=== PATIENT | female | born 1985 | race American Indian/Alaskan Native ===

== ENCOUNTER 2016-11-09 03:42 | Inpatient (IN) | payer BC, MEDICAID ==
[2016-11-09] MEDS ORDERED: STADOL IV PRN (04:41)
[2016-11-09] MEDS ORDERED: ePHEDrine SULFATE IV PRN ×2 (04:41→08:00)
[2016-11-09] MEDS ORDERED: MINERAL OIL PO PRN (04:41)
[2016-11-09] MEDS ORDERED: SUBLIMAZE IV PRN (04:41)
[2016-11-09] MEDS ORDERED: XYLOCAINE 2% INFILTRATI ONE (04:41)
[2016-11-09] MEDS ORDERED: BRETHINE IVP PRN (04:41)
[2016-11-09] MEDS ORDERED: BRETHINE SUB-Q PRN (04:41)
[2016-11-09] MEDS ORDERED: PITOCin/NS 20 UNIT/1000ML DRIP 20 UNITS/1,000 ML BAG IV SCH ×2 (05:00→17:00)
[2016-11-09] MEDS ORDERED: LACTATED RINGERS 1,000 ML IV SCH (05:00)
[2016-11-09 05:23] LABS: Hematocrit 35.3 % (30.3-42.9); Hemoglobin 11.5 gm/dl (10.1-14.3); Mean Corpuscular HGB Conc 33 % (30-34); Mean Corpuscular Hemoglobin 28 pg (28-32); Mean Corpuscular Volume 87 fl (79-97); Platelet Count 160 K/mm3 (140-440); Red Blood Count 4.08 M/mm3 (3.65-5.03); Red Cell Distribution Width 14.8 % (13.2-15.2); White Blood Count 8.9 K/mm3 (4.5-11.0)
[2016-11-09] MEDS ORDERED: ePHEDrine SULFATE ONE ×2 (06:17→15:48)
--- NOTE | 2016-11-09 07:15 | Anesthesia Consultation ---
Anesthesia Consult and Med Hx Date of service: 11/09/16 - Airway Anesthetic Teeth Evaluation: Good ROM Head & Neck: Adequate Mental/Hyoid Distance: Adequate Intubation Access Assessment: Probably Good - Pre-Operative Health Status ASA Pre-Surgery Classification: ASA2, Emergency Proposed Anesthetic Plan: Epidural, Spinal - Pulmonary Hx Asthma: No COPD: No Hx Pneumonia: No - Cardiovascular System Hx Hypertension: No - Central Nervous System Hx Seizures: No Hx Psychiatric Problems: No - Endocrine Hx Renal Disease: No Hx End Stage Renal Disease: No Hx Hypothyroidism: No Hx Hyperthyroidism: No - Hematic Hx Anemia: No Hx Sickle Cell Disease: No - Other Systems Hx Alcohol Use: No
[2016-11-09] MEDS ORDERED: fentaNYL-BUPIV 2 MCG/ML-0.125% 200 MCG/100 ML BAG EPIDURAL SCH (08:00)
[2016-11-09] MEDS ORDERED: NARCAN 2 MG/2 ML IV PRN (08:00)
[2016-11-09] MEDS ORDERED: BICITRA ONE (14:19)
[2016-11-09] MEDS ORDERED: REGLAN ONE (14:19)
[2016-11-09] MEDS ORDERED: PEPCID IV ONE (14:19)
--- NOTE | 2016-11-09 14:27 | History and Physical Report ---
History of Present Illness Date of examination: 11/09/16 Date of admission: 11/09/16 04:45 Chief complaint: contractions History of present illness: This is a 31 yo at 39+ weeks came in last night for contractions regularly. She changed her cervix and was admitted to labor and delivery for active labor. She is a patient of [facility] and was seen since 13 weeks. During her OB problems 1. Hx of b/l club feet APA neg for cclub feet 2. 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 denies: smoking, alcohol abuse - Obstetrical History Expected Date of Delivery: 11/08/16 Actual Gestation: 40 Week(s) 1 Day(s) : 6 Hx # Term Pregnancies: 4 Number of Pregnancies: 0 Spontaneous Abortions: 0 Induced : 1 Number of Living Children: 4 Medications and Allergies Allergies Allergy/AdvReac Type Severity Reaction Status Date / Time No Known Allergies Allergy Unverified 11/09/16 03:55 Home Medications Medication Instructions Recorded Confirmed Last Taken Type No Known Home Medications [No 11/09/16 11/09/16 Unknown History Reported Home Medications] Active Meds: Active Medications Butorphanol Tartrate (Stadol) 2 mg IV Q2H PRN PRN Reason: Pain , Severe (7-10) Ephedrine Sulfate (Ephedrine Sulfate) 10 mg IV Q2M PRN PRN Reason: Hypotension Stop: 11/10/16 07:59 Fentanyl (Sublimaze) 100 mcg IV Q2H PRN PRN Reason: Labor Pain Last Admin: 11/09/16 05:43 Dose: 100 mcg Lactated Ringer's (Lactated Ringers) 1,000 mls @ 125 mls/hr IV DIRECT YUNIER Last Admin: 11/09/16 05:32 Dose: 999 mls/hr Oxytocin/Sodium Chloride (Pitocin/Ns 20 Unit/1000ml Drip) 20 units in 1,000 mls @ 125 mls/hr IV DIRECT YUNIER Fentanyl/Bupivacaine/Sodium Chlor (Fentanyl-Bupiv 2 Mcg/Ml-0.125%) 200 mcg in 100 mls @ 12 mls/hr EPIDURAL TITR YUNIER PRN Reason: Protocol Last Admin: 11/09/16 07:48 Dose: 12 mls/hr Mineral Oil (Mineral Oil) 30 ml PO QHS PRN PRN Reason: Constipation Naloxone HCl (Narcan 2 Mg/2 Ml) 0.2 mg IV Q5M PRN PRN Reason: Respiratory sedation Stop: 11/10/16 07:59 Review of Systems All systems: negative Genitourinary: contractions - Vital Signs Vital signs: Vital Signs Temp Resp 98.5 F 18 11/09/16 04:03 11/09/16 04:03 Temp Pulse Resp BP Pulse Ox 98.7 F 107 H 18 122/68 100 11/09/16 05:27 11/09/16 14:17 11/09/16 05:43 11/09/16 14:00 11/09/16 14:17 - Physical Exam Breasts: Positive: normal Cardiovascular: Regular rate, Normal S1, Normal S2 Lungs: Positive: Clear to auscultation, Normal air movement Abdomen: Positive: normal appearance, soft, normal bowel sounds. Negative: distention, tenderness Genitourinary (Female): Positive: normal external genitalia, normal perenium Vulva: both: normal Uterus: Positive: normal size, normal contour Anus/Rectum: Positive: normal perianal skin Extremities: Positive: normal Deep Tendon Reflex Grade: Normal +2 - Obstetrical FHR: category 2 Uterine Contraction Monitor Mode: External Cervical Dilatation: 7 Uterine Contraction Pattern: Regular Uterine Tone Measurement Phase: Contraction Uterine Contraction Intensity: Moderate Results Result Diagrams: 11/09/16 05:03 All other labs normal. Assessment and Plan A/P IUP 40 weeks admit to labor and delivery GBS neg expect vaginal delivery
--- NOTE | 2016-11-09 14:33 | Event Note ---
Date: 11/09/16 Patient was checked this am and noted to be 6 cm. She was admitted overnight and given epidural. I checked patient and placed IUPC and FSE and intitated pitocin. Patient rechecked several hours later and no change in cervix. SVE /-2 Cat 2 strip with variable decles noted. Discussed with family and mom discussed failure to progress and we have after discussing r/b/a of the procedure will proceed with primary c/Em questions answered consents signed
[2016-11-09] MEDS ORDERED: XYLOCAINE MPF 2% ONE (14:50)
[2016-11-09] MEDS ORDERED: WATER FOR IRRIG STERILE IR ONE (15:08)
[2016-11-09] MEDS ORDERED: NACL 0.9% IR ONE (15:08)
[2016-11-09] MEDS ORDERED: MORPHINE ONE ×2 (15:35)
[2016-11-09] MEDS ORDERED: WATER FOR INJ (PF) 10 ML ONE (15:38)
[2016-11-09] MEDS ORDERED: NEO SYNEPHRINE/NS Syringe(OR USE) IV ONE (16:00)
--- NOTE | 2016-11-09 16:12 | Anesthesia Consultation ---
Anesthesia Consult and Med Hx Date of service: 11/09/16 - Airway Anesthetic Teeth Evaluation: Good ROM Head & Neck: Adequate Mental/Hyoid Distance: Adequate Mallampati Class: Class II Intubation Access Assessment: Probably Good - Pulmonary Exam CTA: Yes - Cardiac Exam Cardiac Exam: RRR - Pre-Operative Health Status ASA Pre-Surgery Classification: ASA2 Proposed Anesthetic Plan: Epidural, Spinal - Pulmonary Hx Asthma: No COPD: No Hx Pneumonia: No - Cardiovascular System Hx Hypertension: No - Central Nervous System Hx Seizures: No Hx Psychiatric Problems: No - Endocrine Hx Renal Disease: No Hx End Stage Renal Disease: No Hx Hypothyroidism: No Hx Hyperthyroidism: No - Hematic Hx Anemia: No Hx Sickle Cell Disease: No - Other Systems Hx Alcohol Use: No Hx Obesity: Yes - Additional Comments Anesthesia Medical History Comments: +IUP
[2016-11-09 16:20] LABS: Hematocrit 30.2 % (30.3-42.9); Hemoglobin 9.9 gm/dl (10.1-14.3); Mean Corpuscular HGB Conc 33 % (30-34); Mean Corpuscular Hemoglobin 29 pg (28-32); Mean Corpuscular Volume 87 fl (79-97); Platelet Count 152 K/mm3 (140-440); Red Blood Count 3.45 M/mm3 (3.65-5.03); White Blood Count 10.4 K/mm3 (4.5-11.0)
[2016-11-09 16:32] LABS: INR 1.1 (0.87-1.13); Partial Thromboplastin Time 23.1 Sec. (24.2-36.6)
[2016-11-09] MEDS ORDERED: LACTATED RINGERS 1,000 ML ONE (16:34)
[2016-11-09] MEDS ORDERED: ZOFRAN ONE (16:39)
--- NOTE | 2016-11-09 16:45 | Procedure Note ---
OB Delivery Note - Delivery Date of Delivery: 11/09/16 Surgeon: AZIZA ENGEL Estimated blood loss: other - Section Preop diagnosis: arrest of descent, nonreassuring FHR tracing Postop diagnosis: other (true knot) section procedure: section Disposition: PACU Complications: intra-op hemorrhage Narrative: see op report - A at 1 minute: 8 at 5 minutes: 9 Gender: Male
[2016-11-09] MEDS ORDERED: MILK OF MAGNESIA PO PRN (16:50)
[2016-11-09] MEDS ORDERED: TUCKS PAD TP PRN (16:50)
[2016-11-09] MEDS ORDERED: TYLENOL PO PRN (16:50)
[2016-11-09] MEDS ORDERED: PERCOCET 5/325 PO PRN (16:50)
[2016-11-09] MEDS ORDERED: TORADOL IV PRN ×2 (16:50)
[2016-11-09] MEDS ORDERED: NARCAN 0.4 MG/1 ML IV PRN (16:50)
[2016-11-09] MEDS ORDERED: PHENERGAN PR PRN (16:50)
[2016-11-09] MEDS ORDERED: NORCO 5/325 PO PRN (16:50)
[2016-11-09] MEDS ORDERED: SENOKOT PO PRN (16:50)
[2016-11-09] MEDS ORDERED: LANSINOH TP PRN (16:50)
[2016-11-09] MEDS ORDERED: ZOFRAN IV PRN (16:50)
[2016-11-09] MEDS ORDERED: MYLICON PO PRN (16:50)
[2016-11-09] MEDS ORDERED: MORPHINE IV PRN ×2 (16:50)
--- NOTE | 2016-11-09 16:50 | Operative Report ---
Operative Report Operative Report: PREOPERATIVE DIAGNOSES: 1. Intrauterine at term. 2. Arrest of descent 3. NRFHT 4. Failutre to Progress POSTOPERATIVE DIAGNOSES: 1. Intrauterine at term. 2. Arrest of descent 3. NRFHT 4. Failure to progress 5. True Knot . PROCEDURE PERFORMED: Primary low-transverse section. ANESTHESIA: Epidural. ESTIMATED BLOOD LOSS: 1700 mL. COMPLICATIONS: Intraop hemorrhage. FINDINGS: Male in cephalic presentation, OA position, weight 7 pounds 8 ounces. Apgars were 8 at 1 minute and 9 at 5 minutes. Normal uterus, tubes, and ovaries were noted. INDICATIONS: The patient is a 31-year-old 6, para 4 female, who presented to labor and delivery in early active labor at 40 +weeks gestation. The patient progressed to 8 cm, at which time, Pitocin was started. She subsequently progressed to 9 cm, but despite adequate contractions, arrested dilation at 9 cm. heart tracing showed variable decles despite position change and IVF and oxygen no resolution , A decision was made to proceed with a primary low transverse section. The procedure was described to the patient in detail including possible risks of bleeding, infection, injury to surrounding organs, and possible need for further surgery. Informed consent was obtained prior to proceeding with the procedure. PROCEDURE NOTE: The patient was taken to the operating room where epidural anesthesia was found to be adequate. The patient was prepped and draped in the usual sterile fashion in the dorsal supine position with a left-funk tilt. A Pfannenstiel skin incision was made with the scalpel and carried through to the underlying layer of fascia using the Bovie. The fascia was incised in the midline and extended laterally using Suero scissors. Donato clamps were used to elevate the superior aspect of the fascial incision, which was elevated, and the underlying rectus muscles were dissected off bluntly and using Suero scissors. Attention was then turned to the inferior aspect of the fascial incision, which in similar fashion was grasped with Donato clamps, elevated, and the underlying rectus muscles were dissected off bluntly and using Suero scissors. The rectus muscles were dissected in the midline. The peritoneum was bluntly dissected, entered, and extended superiorly and inferiorly with good visualization of the bladder. The bladder blade was inserted. The vesicouterine peritoneum was identified with pickups and entered sharply using Metzenbaum scissors. This incision was extended laterally and the bladder flap was created digitally. The bladder blade was reinserted. The lower uterine segment was incised in a transverse fashion using the scalpel and extended using manual traction. Clear fluid was noted. The infant was subsequently delivered atraumatically. The nose and mouth were bulb suctioned. The cord was clamped and cut. The was subsequently handed to the awaiting nursery nurse. Next, cord blood was obtained per the patient's request for cord blood donation, which took several minutes to perform. Subsequent to the collection of this blood, the placenta was removed spontaneously intact with a 3-vessel cord noted. The uterus was exteriorized and cleared of all clots and debris. The uterine incision was repaired in 2 layers using 0 chromic suture. Patient continued to ooze from lower uterine segment. I used thiesel and flowseal after several figure of 8 sutures and finally hemostasis achieved. . The uterus was returned to the abdomen. The pelvis was copiously irrigated. The uterine incision was reexamined and was noted to be hemostatic. The fascia was closed with 0 PDS, the subcutaneous layer was closed with 3-0 plain gut, and the skin was closed with britany. Sponge, lap, and instrument counts were correct x2. The patient was stable at the completion of the procedure and was subsequently transferred to the recovery room in stable condition.
[2016-11-09] MEDS ORDERED: SODIUM CHLORIDE FLUSH SYRINGE 10 ML IV SCH (17:00)
[2016-11-09] MEDS ORDERED: NACL 0.9% 500 ML 500 ML IV SCH (17:01)
--- NOTE | 2016-11-09 17:25 | Post Anesthesia Evaluation ---
- Post Anesthesia Evaluation Patient Participated: Yes Airway Patent: Yes Stable Respiratory Function: Yes Nausea/Vomiting: No Temp > 96.8F: Yes Pain Manageable: Yes Adequeate Hydration: Yes Anesthesia Complications: No Block Receding Appropriately: Yes Patient on Ventilator: No
[2016-11-09] MEDS ORDERED: BENADRYL IV PRN (17:26)
[2016-11-10 00:55] LABS: Hematocrit 34.1 % (30.3-42.9); Hemoglobin 11.1 gm/dl (10.1-14.3); Mean Corpuscular HGB Conc 33 % (30-34); Mean Corpuscular Hemoglobin 29 pg (28-32); Mean Corpuscular Volume 89 fl (79-97); Platelet Count 128 K/mm3 (140-440); Red Blood Count 3.85 M/mm3 (3.65-5.03); Red Cell Distribution Width 15.1 % (13.2-15.2); White Blood Count 13.5 K/mm3 (4.5-11.0)
[2016-11-10] MEDS ORDERED: BOOSTRIX IM ONE (06:00)
[2016-11-10] MEDS ORDERED: DEPO-PROVERA (CONTRACEPTION) IM ONE (06:31)
--- NOTE | 2016-11-10 06:31 | Progress Note ---
Assessment and Plan A/P POD#1 s/p primary LSTCS for nrfht , failure to descend H/H 11.1---s/p blood transfusion ( intraop hemorrhage 1700cc) Depo for control VSS D/C ward Ambulation with assistance RH+ no rhogam indicated Continue routine PP orders Advance diet as tolerated Subjective - Subjective Date of service: 11/10/16 Principal diagnosis: s/p primary c/s secondary to NRFHT, failure to progress Interval history: This is a 31 yo at 39+ weeks came in last night for contractions regularly. She changed her cervix and was admitted to labor and delivery for active labor. She is a patient of [facility] and was seen since 13 weeks. During her OB problems 1. Hx of b/l club feet APA neg for cclub feet 2. 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 Patient reports: appetite normal, pain well controlled : doing well, nursing well, bottle feeding Objective - Vital Signs Latest vital signs: Vital Signs Temp Pulse Resp BP Pulse Ox 11/10/16 00:25 98.4 F 89 18 113/63 11/10/16 00:00 98.8 F 97 H 18 120/71 11/09/16 23:30 99 F 80 16 107/61 11/09/16 23:00 99 F 86 18 108/61 11/09/16 22:30 99.1 F 86 16 106/61 11/09/16 22:00 99.1 F 102 H 18 101/62 11/09/16 21:45 99 F 108 H 17 111/68 11/09/16 21:30 99 F 94 H 18 114/65 11/09/16 19:30 99.0 F 98 H 21 112/71 98 11/09/16 19:25 123 H 22 118/71 98 11/09/16 19:20 103 H 18 138/71 99 11/09/16 19:15 99.0 F 113 H 17 118/65 98 11/09/16 19:10 93 H 19 118/65 98 11/09/16 19:05 96 H 17 120/68 97 11/09/16 19:00 99.1 F 98 H 21 117/62 99 11/09/16 18:55 121 H 20 124/71 99 11/09/16 18:50 110 H 24 114/70 98 07/14/17 18:45 99.1 F 102 H 17 114/66 98 07/14/17 18:40 89 19 106/60 97 /14/17 18:35 103 H 21 124/66 96 /14/17 18:30 99.0 F 98 H 16 118/65 98 14/17 18:25 98 H 17 124/64 98 /14/17 18:20 97 H 20 109/66 97 14/17 18:15 99.2 F 98 H 15 126/64 98 14/17 18:10 111 H 16 125/70 98 14/17 18:05 97 H 22 122/65 97 14/17 18:00 94 H 17 113/64 98 1417 17:55 96 H 13 113/67 96 1417 17:50 109 H 17 121/63 98 14/17 17:45 104 H 17 123/68 98 14/17 17:40 89 16 115/65 96 1417 17:35 92 H 18 108/66 96 14/17 17:30 87 20 120/62 95 14/17 17:25 89 20 119/68 96 14/17 17:20 93 H 15 123/63 98 14/17 17:15 87 17 119/67 97 14/17 17:10 94 H 12 117/66 97 14/17 17:05 103 H 18 115/68 98 11/09/17 17:00 105 H 12 119/71 99 14/17 16:55 103 H 9 L 119/71 98 11/09/17 16:51 121 H 13 107/70 100 14/17 16:50 108 H 19 107/70 100 14/17 16:45 98.7 F 97 H 23 111/71 99 14/17 16:43 96 H 17 98 14/17 14:30 100 H 126/62 14/17 14:27 88 100 14/17 14:22 96 H 100 14/17 14:17 107 H 100 14/17 14:12 104 H 100 14/17 14:07 95 H 100 11/09/16 14:02 100 H 100 14/17 14:00 99 H 122/68 11/09/16 13:57 90 100 11/09/16 13:52 116 H 100 11/09/16 13:47 88 100 11/09/16 13:46 87 108/50 11/09/16 13:42 87 100 11/09/16 13:37 89 100 11/09/16 13:32 98 H 100 11/09/16 13:30 100 H 103/55 11/09/16 13:27 86 100 11/09/16 13:22 93 H 100 11/09/16 13:17 91 H 113/56 100 11/09/16 13:12 87 100 11/09/16 13:07 104 H 100 11/09/16 13:02 105 H 100 11/09/16 13:01 96 H 114/53 11/09/16 12:57 89 100 11/09/16 12:52 85 100 11/09/16 12:47 103 H 100 11/09/16 12:46 109 H 109/56 11/09/16 12:42 103 H 100 11/09/16 12:37 108 H 100 11/09/16 12:32 96 H 100 11/09/16 12:30 100 H 124/60 11/09/16 12:27 101 H 100 11/09/16 12:22 86 100 11/09/16 12:17 94 H 100 11/09/16 12:15 99 H 123/63 11/09/16 12:12 85 100 11/09/16 12:07 87 100 11/09/16 12:02 94 H 100 11/09/16 12:01 90 122/57 11/09/16 11:57 92 H 100 11/09/16 11:52 105 H 100 11/09/16 11:47 97 H 100 11/09/16 11:46 96 H 125/58 11/09/16 11:42 90 100 11/09/16 11:39 86 75 L 11/09/16 11:37 111 H 100 11/09/16 11:32 91 H 100 11/09/16 11:31 96 H 126/60 11/09/16 11:27 89 100 11/09/16 11:22 108 H 100 11/09/16 11:17 87 111/51 100 11/09/16 11:12 80 100 11/09/16 11:07 93 H 100 11/09/16 11:02 89 100 11/09/16 11:00 83 98/51 11/09/16 10:57 82 100 11/09/16 10:52 87 100 11/09/16 10:47 74 100 11/09/16 10:45 91 H 95/53 11/09/16 10:42 76 100 11/09/16 10:37 69 100 11/09/16 10:32 81 90/54 100 11/09/16 10:27 75 100 11/09/16 10:22 70 100 11/09/16 10:17 94 H 100 11/09/16 10:15 97 H 105/52 11/09/16 10:11 81 100 11/09/16 10:06 74 99 11/09/16 10:01 86 107/54 98 11/09/16 09:56 90 99 11/09/16 09:51 100 H 100 11/09/16 09:47 110 H 154/64 11/09/16 09:46 92 H 98 11/09/16 09:41 94 H 100 11/09/16 09:36 97 H 100 11/09/16 09:31 84 100 11/09/16 09:30 83 110/55 11/09/16 09:26 89 100 11/09/16 09:21 90 100 11/09/16 09:16 88 114/55 100 11/09/16 09:11 104 H 100 11/09/16 09:06 87 100 11/09/16 09:01 94 H 100 11/09/16 09:00 99 H 111/57 11/09/16 08:56 77 99 11/09/16 08:51 83 97 11/09/16 08:46 99 H 99 11/09/16 08:45 93 H 111/59 11/09/16 08:41 84 95 11/09/16 08:36 84 95 11/09/16 08:31 76 96 11/09/16 08:30 84 109/59 11/09/16 08:29 84 94 11/09/16 08:26 80 95 11/09/16 08:21 83 96 11/09/16 08:16 82 97 11/09/16 08:15 85 113/57 11/09/16 08:14 80 94 11/09/16 08:13 85 175/72 07/14/17 08:11 79 99 11/09/16 08:10 76 120/60 11/09/16 08:08 73 111/58 11/09/16 08:06 80 110/55 97 11/09/16 08:04 75 118/62 11/09/16 08:02 83 116/58 11/09/16 08:01 78 97 11/09/16 08:00 82 118/58 11/09/16 07:58 88 126/64 11/09/16 07:56 81 116/62 97 11/09/16 07:54 91 H 116/66 11/09/16 07:52 90 114/58 11/09/16 07:51 74 98 11/09/16 07:50 76 117/56 11/09/16 07:48 78 118/63 11/09/16 07:46 80 110/61 96 11/09/16 07:44 74 114/59 11/09/16 07:42 72 118/60 11/09/16 07:41 70 97 11/09/16 07:40 76 124/61 11/09/16 07:38 77 114/56 11/09/16 07:36 77 119/61 98 11/09/16 07:34 77 123/62 11/09/16 07:32 81 112/61 11/09/16 07:31 79 97 11/09/16 07:30 73 108/63 11/09/16 07:28 68 109/56 11/09/16 07:26 75 118/57 98 11/09/16 07:24 71 113/55 11/09/16 07:22 76 111/56 11/09/16 07:21 88 97 11/09/16 07:20 72 113/59 11/09/16 07:18 88 120/57 11/09/16 07:16 73 114/57 96 11/09/16 07:14 71 121/56 11/09/16 07:12 92 H 116/58 11/09/16 07:11 70 96 11/09/16 07:10 68 114/55 11/09/16 07:08 75 114/58 11/09/16 07:06 79 115/57 97 11/09/16 07:04 89 117/58 11/09/16 07:02 75 115/58 0714/17 07:01 78 97 11/09/16 07:00 89 115/56 11/09/16 06:58 72 117/57 11/09/16 06:56 76 116/56 96 11/09/16 06:54 78 111/55 11/09/16 06:52 74 112/55 11/09/16 06:51 78 97 11/09/16 06:50 82 110/54 11/09/16 06:48 80 108/55 11/09/16 06:46 103 H 104/56 98 11/09/16 06:44 95 H 111/57 11/09/16 06:42 90 120/57 11/09/16 06:41 95 H 98 11/09/16 06:40 88 123/59 11/09/16 06:39 97 H 133/60 11/09/16 06:38 96 H 194/88 11/09/16 06:36 95 H 98 11/09/16 06:34 95 H 130/62 11/09/16 06:32 89 132/62 11/09/16 06:31 93 H 100 11/09/16 06:30 114 H 146/66 Intake and Output 11/09/16 11/09/16 11/10/16 14:59 22:59 06:59 Intake Total 4350 250 Output Total 250 1100 Balance -250 3250 250 Intake: IV 4100 Lactated Ringers 1,000 ml 300 @ 125 mls/hr IV DIRECT YUNIER Rx#:[id number] 2 MCG/ML-0 100 .125% 200 mcg In 100 ml @ 12 mls/hr EPIDURAL TITR YUNIER Rx#:[id number] Blood Product 250 250 Leukoreduced Red Blood 250 Cells Unit [id number] Leukoreduced Red Blood 0 250 Cells Unit [id number] Output: Urine 250 1100 Indwelling Catheter 250 Other: Total, Output Amount 100 Estimated Blood Loss 1,700 - Exam Breasts: Present: normal Cardiovascular: Present: Regular rate, Normal S1 Lungs: Present: Clear to auscultation, Normal air movement Abdomen: Present: normal appearance, soft, normal bowel sounds. Absent: distention, tenderness, guarding Vulva: both: normal Uterus: Present: normal, firm, fundal height below umbilicus (2cm below ). Absent: bogginess, tenderness Extremities: Present: normal Deep Tendon Reflex Grade: Normal +2 - Labs Labs: Abnormal lab results 11/09/16 11/09/16 11/09/16 Range/Units 05:03 15:53 15:53 WBC (4.5-11.0) K/mm3 RBC 3.45 L (3.65-5.03) M/mm3 Hgb 9.9 L (10.1-14.3) gm/dl Hct 30.2 L (30.3-42.9) % Plt Count (140-440) K/mm3 APTT 23.1 L (24.2-36.6) Sec. Crossmatch See Detail 11/09/16 Range/Units 23:56 WBC 13.5 H (4.5-11.0) K/mm3 RBC (3.65-5.03) M/mm3 Hgb (10.1-14.3) gm/dl Hct (30.3-42.9) % Plt Count 128 L (140-440) K/mm3 APTT (24.2-36.6) Sec. Crossmatch
[2016-11-10 07:23] LABS: Hematocrit 28.3 % (30.3-42.9); Hemoglobin 9.4 gm/dl (10.1-14.3)
--- NOTE | 2016-11-10 10:23 | Progress Note ---
Subjective Date of service: 11/10/16 Principal diagnosis: s/p primary c/s secondary to NRFHT, failure to progress Interval history: Epidural is out. No anesthetic related complaints. Objective - Constitutional Vitals: Vital Signs - 12hr 11/09/16 11/09/16 11/09/16 22:30 23:00 23:30 Temperature 99.1 F 99 F 99 F Pulse Rate 86 86 80 Pulse Rate [ From Monitor] Pulse Rate [ Right Radial] Respiratory 16 18 16 Rate Blood Pressure 106/61 108/61 107/61 Blood Pressure [Left Arm] Blood Pressure [Right Arm] 11/10/16 11/10/16 11/10/16 00:00 00:25 04:00 Temperature 98.8 F 98.4 F 98.9 F Pulse Rate 97 H 89 Pulse Rate [ 26 L From Monitor] Pulse Rate [ Right Radial] Respiratory 18 18 18 Rate Blood Pressure 120/71 113/63 Blood Pressure 109/59 [Left Arm] Blood Pressure [Right Arm] 11/10/16 07:25 Temperature 98.6 F Pulse Rate Pulse Rate [ From Monitor] Pulse Rate [ 76 Right Radial] Respiratory 20 Rate Blood Pressure Blood Pressure [Left Arm] Blood Pressure 100/52 [Right Arm] - Labs CBC & Chem 7: 11/10/16 06:07 Labs: Abnormal lab results 11/09/16 11/09/16 11/09/16 Range/Units 05:03 15:53 15:53 WBC (4.5-11.0) K/mm3 RBC 3.45 L (3.65-5.03) M/mm3 Hgb 9.9 L (10.1-14.3) gm/dl Hct 30.2 L (30.3-42.9) % Plt Count (140-440) K/mm3 APTT 23.1 L (24.2-36.6) Sec. Crossmatch See Detail 11/09/16 11/10/16 Range/Units 23:56 06:07 WBC 13.5 H (4.5-11.0) K/mm3 RBC (3.65-5.03) M/mm3 Hgb 9.4 L (10.1-14.3) gm/dl Hct 28.3 L (30.3-42.9) % Plt Count 128 L (140-440) K/mm3 APTT (24.2-36.6) Sec. Crossmatch
[2016-11-10] MEDS: PRENATAL VITAMIN PO SCH (11:47)
[2016-11-10] MEDS: FEOSOL PO SCH (11:47)
[2016-11-10] MEDS: MOTRIN PO PRN ×2 (11:47→18:20)
[2016-11-10 16:07] LABS: Hemoglobin 10.2 gm/dl (10.1-14.3); Mean Corpuscular HGB Conc 33 % (30-34); Mean Corpuscular Hemoglobin 29 pg (28-32); Mean Corpuscular Volume 88 fl (79-97); Platelet Count 157 K/mm3 (140-440); Red Blood Count 3.53 M/mm3 (3.65-5.03); Red Cell Distribution Width 14.6 % (13.2-15.2); White Blood Count 15.3 K/mm3 (4.5-11.0)
[2016-11-10] MEDS ORDERED: M-M-R II VACCINE SUB-Q ONE (16:54)
[2016-11-11] MEDS: MOTRIN PO PRN ×3 (02:37→17:42)
[2016-11-11] MEDS ORDERED: BOOSTRIX IM ONE (06:00)
--- NOTE | 2016-11-11 06:43 | Discharge Summary ---
Providers - Providers Date of Admission: 11/09/16 04:45 Date of discharge: 11/11/16 Attending physician: AZIZA ENGEL MD Primary care physician: AZIZA ENGEL MD Hospitalization Reason for admission: active labor Delivery: Procedure: section Episiotomy: none Laceration: none Incision: normal, dry, intact Other procedures: none complications: transfusion Discharge diagnosis: IUP at term delivered baby: male Hospital course: POD#2 s/p primary lstcs for nrfht s/p blood transfusion with intraop hemorrhage VSS h/h 11.5---10.2 met discharge requirements d/c home with f/u in 1 week staple removal in 10 days postop Condition at discharge: Good Disposition: DC-01 TO HOME OR SELFCARE Plan - Discharge Medications Prescriptions: Ibuprofen [Motrin] 600 mg PO Q8H PRN #30 tablet PRN Reason: Pain oxyCODONE /ACETAMINOPHEN [Percocet 5/325] 1 tab PO Q6HR PRN #30 tablet PRN Reason: Pain - Provider Discharge Summary Activity: routine, no sex for 6 weeks Diet: routine Instructions: routine (please bring staple kit to rmove staple 10 days after c/ sec) Additional instructions: [] Smoking cessation referral if applicable(refer to patient education folder for contact #) [] Refer to [facility] Booklet Call your doctor immediately for: * Fever > 100.5 * Heavy vaginal bleeding ( >1 pad per hour) * Severe persistent headache * Shortness of breath * Reddened, hot, painful area to leg or breast * Drainage or odor from incision. * Keep incision clean and dry at all times and follow doctor's instructions regarding bathing/showering - Follow up plan Follow up: AZIZA ENGEL MD [Primary Care Provider] - 7 Days
--- NOTE | 2016-11-11 06:45 | Progress Note ---
Assessment and Plan A/P POD#2 s/p primary LSTCS for nrfht , failure to descend h/h 11.5/35.3----10.2/31 Depo for control VSS d/c home tomorrow with f/u in 1 weeks for staple removal +flatus Subjective - Subjective Date of service: 11/11/16 Principal diagnosis: s/p primary c/s secondary to NRFHT, failure to progress Interval history: This is a 31 yo at 39+ weeks came in last night for contractions regularly. She changed her cervix and was admitted to labor and delivery for active labor. She is a patient of [facility] and was seen since 13 weeks. During her OB problems 1. Hx of b/l club feet APA neg for cclub feet 2. 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 Patient reports: appetite normal, voiding normally, pain well controlled, flatus , ambulating normally [place]: doing well Objective - Vital Signs Latest vital signs: Vital Signs Temp Pulse Resp BP 11/11/16 00:00 98.9 F 90 18 115/54 11/10/16 16:55 98.7 F 76 20 98/50 11/10/16 12:00 98.4 F 92 H 20 112/70 11/10/16 07:25 98.6 F 76 20 100/52 Intake and Output 11/10/16 11/10/16 11/11/16 14:59 22:59 06:59 Intake Total 480 480 Balance 480 480 Intake: Oral 480 480 Other: Total, Intake Amount 120 480 # Voids Void 1 1 - Exam Breasts: Present: normal Cardiovascular: Present: Regular rate, Normal S1 Lungs: Present: Clear to auscultation Abdomen: Present: soft, normal bowel sounds. Absent: distention, tenderness, guarding Vulva: both: normal Uterus: Present: normal, firm, fundal height below umbilicus. Absent: bogginess , tenderness Extremities: Present: normal. Absent: tenderness Incision: Present: normal, dry, intact - Labs Labs: Abnormal lab results 11/09/16 11/10/16 11/10/16 Range/Units 05:03 06:07 11:39 WBC 15.3 H (4.5-11.0) K/mm3 RBC 3.53 L (3.65-5.03) M/mm3 Hgb 9.4 L (10.1-14.3) gm/dl Hct 28.3 L (30.3-42.9) % Crossmatch See Detail
[2016-11-11] MEDS ORDERED: CITRATE OF MAGNESIA PO PRN (09:46)
[2016-11-11] MEDS: PRENATAL VITAMIN PO SCH (10:16)
[2016-11-11] MEDS: FEOSOL PO SCH (10:16)
[2016-11-11] MEDS ORDERED: DEPO-PROVERA (CONTRACEPTION) IM ONE (11:00)
[2016-11-12] MEDS: MOTRIN PO PRN ×3 (00:35→12:12)
[2016-11-12] MEDS: FEOSOL PO SCH (12:11)
[2016-11-12] MEDS: PRENATAL VITAMIN PO SCH (12:12)
[2016-11-12 15:14] VITALS: BP 124/66
== END 2016-11-12 14:42 | disposition home or self-care (01) | DRG 765 ==
LOC: TRG 03:42 → LD 04:45 → OB 19:54
PROVIDERS: ADMIT Obstetrics & Gynecology; ATTEND Obstetrics & Gynecology
PROC: 10D00Z1 Extraction of Products of Conception, Low, Open Approach (ICD-10-PCS; principal; 2016-11-09)
PROC: 30233N1 Transfusion of Nonautologous Red Blood Cells into Peripheral Vein, Percutaneous Approach (ICD-10-PCS; principal; 2016-11-09)
DX: O76 Abnormality in fetal heart rate and rhythm complicating labor and delivery (principal); O98.32 Other infections with a predominantly sexual mode of transmission complicating childbirth; O69.2XX0 Labor and delivery complicated by other cord entanglement, with compression, not applicable or unspecified; O67.8 Other intrapartum hemorrhage; Z3A.40 40 weeks gestation of pregnancy; Z37.0 Single live birth; O62.2 Other uterine inertia; Z82.49 Family history of ischemic heart disease and other diseases of the circulatory system; O62.1 Secondary uterine inertia; O99.214 Obesity complicating childbirth; E66.9 Obesity, unspecified; Z68.31 Body mass index [BMI] 31.0-31.9, adult; B00.9 Herpesviral infection, unspecified; Z79.899 Other long term (current) drug therapy
CPT/HCPCS: 36415; 85014; 85018; 85027; 85610; 85730; 86850; 86900; 86901; 86920; 90471; 90715; 99211; A6250; C9250; G0463; J1050; J1200; J1885; J2270; J2370; J2405; J2590; J2765; J3010; J7040; J7120; P9016